=== PATIENT | female | born 1980 | race Caucasian/White ===

== ENCOUNTER 2016-11-20 07:56 | Emergency (ER) ==
[2016-11-20 08:06] VITALS: BP 108/71; TEMP 97.7; BMI 21.2
--- NOTE | 2016-11-20 08:12 | ED.PDOC ---
General ED Provider: Dr. DEANNA MOLINA JR Chief Complaint: Sore Throat Stated Complaint: WEEKEND SINUS COUGH SORE THROAT WORSE PAST TWO DAYS AND OVER NIGHT.[End]10/19/17 97.7 89 20 98% 108/71 7 RED THROAT GLANDS HURT TO TOUCH, GREATER ON THE RIGHT.[End]2 days allergy symptoms last night severe sore throat neckpain pain with ROM neck Time Seen by Physician: 08:10 Mode of Arrival: Walk-In Information Source: Patient Exam Limitations: No limitations Primary Care Provider: JACE MCCAULEY Nursing and Triage Documentation Reviewed and Agree: No Review of Systems - Review Of Systems Constitutional: Reports: Malaise Eyes: Reports: No symptoms Ears, Nose, Mouth, Throat: Reports: Nose pain, Nose discharge, Throat pain Respiratory: Reports: Cough Cardiac: Reports: No symptoms GI: Reports: No symptoms : Reports: No symptoms Musculoskeletal: Reports: No symptoms Skin: Reports: No symptoms Neurological: Reports: No symptoms Endocrine: Reports: No symptoms Hematologic/Lymphatic: Reports: No symptoms All Other Systems: Other Past Medical History - Past Medical History Endocrine: Reports: None Cardiovascular: Reports: None Respiratory: Reports: None Hematological: Reports: None Gastrointestinal: Reports: None Genitourinary: Reports: None Neuro/Psych: Reports: None Musculoskeletal: Reports: None Cancer: Reports: None Last Menstrual Period: 2012 - Surgical History General Surgical History: Reports: Tubal ligation - Family History Family History: Reports: None, Other (son with strep 2 weeks ago) - Social History Smoking Status: Never smoker Hx Substance Use: No Alcohol Screening: None - Immunizations Tetanus Shot up to Date: Yes Physical Exam - Physical Exam Appearance: Ill-appearing, Thin Pain Distress: Moderate Eyes: ARABELLA, EOMI, Conjunctiva clear ENT: Ears normal, Nose normal, Oropharynx normal Neck: Supple Respiratory: Airway patent, Breath sounds clear, Breath sounds equal, Respirations nonlabored Cardiovascular: RRR, Pulses normal, No rub, No murmur GI/: Soft, Nontender, No masses, Bowel sounds normal, No Organomegaly Musculoskeletal: Normal strength, ROM intact, No edema, No calf tenderness Skin: Warm, Dry, Normal color Neurological: Sensation intact, Motor intact, Reflexes intact, Cranial nerves intact, Alert, Oriented Psychiatric: Affect appropriate, Mood appropriate Critical Care Note - Critical Care Note Total Time (mins): 0 Course - Course Vital Signs: Temp Pulse Resp BP Pulse Ox 11/20/16 07:57 97.7 F 89 20 108/71 98 Departure - Departure Time of Disposition: 08:43 Disposition: HOME SELF-CARE Discharge Problem: Sore throat symptom, Strep pharyngitis Instructions: Pharyngitis (ED), Strep Throat (ED) Condition: Good Pt referred to PMD for follow-up: Yes Additional Instructions: Naprosyn for pain- with food Keflex fro infection four times a day prednisone for swelling and inflammation may use chloraseptic spray do not take Naprosyn with NSAIDS Prescriptions: Naproxen [Naprosyn] 500 mg PO Q12HR PRN #30 tablet PRN Reason: PAIN Cephalexin [Keflex] 500 mg PO QID #40 capsule Prednisone 20 mg PO DIRECTED #50 tablet Allergies/Adverse Reactions: Allergies No Known Allergies Allergy (Unverified 11/20/16 08:15) Home Medications: Ambulatory Orders Cephalexin [Keflex] 500 mg PO QID #40 capsule 11/20/16 Naproxen [Naprosyn] 500 mg PO Q12HR PRN #30 tablet 11/20/16 Prednisone 20 mg PO DIRECTED #50 tablet 11/20/16
[2016-11-20 08:40] LABS: FLU INTERNAL QC INTERNAL QC VALID; RAPID FLU A NEGATIVE (NEGATIVE); RAPID FLU B NEGATIVE (NEGATIVE)
== END 2016-11-20 08:56 | disposition home or self-care (01) ==
LOC: ED 07:56
DX: J02.0 Streptococcal pharyngitis (principal); R05 Cough
CPT/HCPCS: 87804; 87880; 99283